=== PATIENT | female | born 1975 | race Caucasian/White ===

== ENCOUNTER → 2017-08-27 | Day surgery (SDC) | payer OTHER ==
[2007-07-17 21:07] VITALS: BP 105/55
[~2017-08-27] MED LIST: BUPROPION HCL150 M4 PO; FIORICET 50-301 EACH PO; PROBIOTIC1 EACH PO
[2017-08-27 08:39] LABS: ABSOLUTE BASOPHIL COUNT 0 /CUMM (0.0-0.2); ABSOLUTE EOSINOPHIL COUNT 0.1 /CUMM (0.0-0.7); ABSOLUTE MONOCYTE COUNT 0.7 /CUMM (0.10-0.60); BASOPHIL % 0.6 % (0.0-2.0); EOSINOPHIL % 1.7 % (0-5); GRANULOCYTE % 58.3 % (42.2-75.2); HEMATOCRIT 40.2 % (37-47); MEAN CORPUSCULAR HGB 31.6 PG (27.0-31.0); MEAN CORPUSCULAR VOLUME 90.2 FL (81.0-99.0); PLATELET COUNT 257 /CUMM (130-400); RBC DISTRIBUTION WIDTH 13.7 % (11.5-14.5); RED BLOOD CELL CT 4.46 /CUMM (4.20-5.40); WHITE BLOOD CELL COUNT 6.9 /CUMM (4.8-10.8)
[2017-08-27 08:48] LABS: PT 11.7 SEC (9.4-12.5); PTT 31 SEC (25-37)
--- NOTE | 2017-08-28 05:26 | ULTRASOUND REPORT ---
EXAMINATION: ULTRASOUND PELVIS/INTRAOPERATIVE FLUOROSCOPY CLINICAL INDICATION: Menometrorrhagia. COMPARISON: Pelvic ultrasound dated 08/16/2012. TECHNIQUE/FINDINGS: Ultrasound equipment was dedicated to the operating room for ultrasound guidance of an intraoperative procedure. Several (8) images were acquired and are archived in PACS. Please refer to operative notes for procedural detail. IMPRESSION: Administrative dictation for intraoperative ultrasound and image archiving in PACS. Please refer to operative notes for details.
--- NOTE | 2017-09-01 19:47 | Operative Report ---
Operative/Inv Procedure Report Surgery Date: 08/27/17 Name of Procedure: d&c CRYOABLATION UNDER ULTRASOUND GUIDANCE Pre-Operative Diagnosis: mETROMENORRHAGIA Post-Operative Diagnosis: SAME Estimated Blood Loss: less than 50ml Surgeon/Control Clerk: Elio MAOJR,Ani Mack Anesthesia: moderate sedation Operative/Procedure Note Note: Procedure note patient is a the operating room placed on position after adequate induction of anesthesia patient placed in dorsolithotomy position vagina from dorsal fashion bladder was catheterized examination under anesthesia performed patient tolerated this well at this point the bladder was filled with approximately 2 and 50 mL normal saline seen to neck was placed on the Intralipid cervix gentle downward traction performed and cervix was dilated 29 Hegar to allow the insertion curette a sharp curettage endometrial lining was performed sharp curettage and cervical lining was using [place] at this point under ultrasound guidance the cryoprobe the her option cryoprobe was placed into the uterus approximately 8 minutes on each side for ice ball formation was adequate checked by ultrasound the probe was heated and removed patient tolerated all this well on maximum fluid was removed from the vagina as well as all instruments patient was returned spine position she was awakened from anesthesia and transferred recovery room awake alert counts correct Findings: Normal size uterus no adnexal masses normal appearing cervix
== END ==
LOC: STS 01:47
PROVIDERS: Specialist
DX: N92.1 Excessive and frequent menstruation with irregular cycle (principal); F17.200 Nicotine dependence, unspecified, uncomplicated
CPT/HCPCS: 36415; 76998; 81001; 81003; 81025; 87086; J1885; J2250; J2405